=== PATIENT | male | born 1975 | race Hispanic/Latino ===

== ENCOUNTER 2020-07-28 22:42 | Emergency (ER) | payer SELFPAY ==
[2020-07-28 22:48] VITALS: BP 142/82; PULSE 90; RESP 16; TEMP 36.4; O2SAT 100
--- NOTE | 2020-07-28 23:12 | PC.NURSE ---
Pt unable to urinate at this time, refusing straight catheter. Urine cup at bedside.
[2020-07-28 23:13] VITALS: PULSE 91
[2020-07-28 23:27] LABS: Glucose Point of Care 344 mg/dl (65-105)
[2020-07-28 23:32] VITALS: BP 128/83; PULSE 92; RESP 19; O2SAT 100
[2020-07-28] MEDS: SODIUM CHLORIDE 0.9% IV 1,000 ML 999 ML IV CONT (23:40)
[2020-07-29] VITALS: BP 138/79; PULSE 89; RESP 20; O2SAT 100
--- NOTE | 2020-07-29 00:15 | PC.NURSE ---
Pt to attempt to provide urine sample at this time.
[2020-07-29 00:29] LABS: Alanine Aminotransferase 17 U/L (4-50); Albumin Level 4.5 g/dL (3.5-5.1); Alkaline Phosphatase 94 U/L (38-126); Anion Gap 15 mmol/L (8-16); Aspartate Amino Transferase 22 U/L (17-59); Bilirubin,Total 0.4 mg/dL (0.2-1.3); Blood Urea Nitrogen 20 mg/dL (9-20); Calcium 9.1 mg/dL (8.4-10.2); Carbon Dioxide 20 mmol/L (22-30); Chloride 97 mmol/L (98-107); Estimated CRCL calculation 74 ml/min; Estimated Glomerular Filt Rate > 60; Glucose 356 mg/dL (75-110); Magnesium 1.9 mg/dL (1.6-2.3); Phosphorus 3.8 mg/dL (2.5-4.5); Potassium 4.6 mmol/L (3.4-5.0); Sodium 132 mmol/L (137-145)
[2020-07-29 00:31] LABS: Add Urine Microscopic? YES; Appearance Urine Clear (Clear); Bilirubin Urine Negative (Negative); Blood Urine Negative (Negative); Color Urine Straw (Yellow); Glucose Urine UA 3+ mg/dL (Negative); Ketones Urine 2+ mg/dL (Negative); Leukocyte Esterase Ur Negative LEU/UL (Negative); Mucus Urine Rare /lpf; Nitrate Urine Negative (Negative); Protein Urine 1+ mg/dL (Negative); Specific Grav Ur 1.027 (1.001-1.035); Squamous Epithelial Cell Urine Rare /hpf (Few); Urobilinogen Urine Negative mg/dL (<2.0); WBC Urine 0-3 /hpf
[2020-07-29 00:33] LABS: Basophils Percent Auto 0.7 % (0.2-1.2); Eosinophils Absolute Auto 0.2 K/mm3 (0-0.3); Eosinophils Percent Auto 3.7 % (0-4.4); Hematocrit 39.8 % (42.0-52.0); Hemoglobin 13.4 g/dL (14.0-18.0); Immature Granulocyte Absolute 0.02 K/mm3 (0.00-0.031); Immature Granulocyte Percent A 0.4 % (0-0.5); Lymphocytes Absolute Auto 2.68 K/mm3 (0.9-3.2); Lymphocytes Percent Auto 50.2 % (18.3-44.2); Mean Corpuscular HGB Conc 33.7 g/dl (32-36); Mean Corpuscular Hemoglobin 30.9 pg (26-34); Mean Corpuscular Volume 91.9 fl (80-100); Mean Platelet Volume 11.1 fl (7.4-10.4); Monocytes Absolute Auto 0.4 K/mm3 (0.1-0.6); Monocytes Percent Auto 6.7 % (2.6-8.5); Neutrophils Percent Auto 38.3 % (45.5-73.1); Platelet Count Result 300 k/mm3 (150-375); Red Blood Count 4.33 M/mm3 (4.6-6.20); Red Cell Distribution Width 11.8 % (11.5-14.5); White Blood Count 5.3 K/mm3 (4.5-10.0)
[2020-07-29] MEDS: SODIUM CHLORIDE 0.9% IV 1,000 ML 999 ML IV CONT (00:53)
[2020-07-29] MEDS: INSULIN HUMAN REGULAR (*BKC) 100 UNITS/ML 8 UNITS SUB-Q (00:54)
[2020-07-29 00:59] LABS: Glucose Point of Care 291 mg/dl (65-105)
--- NOTE | 2020-07-29 01:07 | ED.GENADULT ---
HPI - General Adult General Chief complaint: Unspecified Stated complaint: diabetic and feeling tired Time Seen by Provider: 07/28/20 23:00 Source: patient and RN notes reviewed Mode of arrival: ambulatory Limitations: no limitations History of Present Illness HPI narrative: Patient is a 44-year-old male who presents with chief complaint of fatigue and neuropathy notes that he is out of his gabapentin which has resulted in discomfort in the extremities patient notes that he does not have a primary care buys his insulin from [employer] patient notes that he did not check his sugar today but it typically runs in the 200 range patient denies any recent illness or other complaints presents in no distress Related Data Allergies Allergy/AdvReac Type Severity Reaction Status Date / Time No Known Allergies Allergy Verified 07/28/20 22:52 Review of Systems Review of Systems: All systems reviewed & are unremarkable except as noted in HPI and below PMFSH Past Medical History Medical History (Updated 07/29/20 @ 01:11 by Reji Oliver PA-C) Diabetes mellitus Neuropathy Social History Social History (Updated 07/29/20 @ 01:08 by Reji Oliver PA-C) Smoking status: Never smoker Gender identity (if verbalized by the patient): Male Exam Narrative: Exam Narrative: GENERAL: Well-appearing, well-nourished, and in no acute distress. HEAD: Normocephalic, atraumatic. EYES: PERRLA and EOMI. ENT: Nares clear, no rhinorrhea or epistaxis. Mucous membranes moist. CHEST: Clear to auscultation. No respiratory distress. No wheezes rales or rhonchi HEART: Regular rate and rhythm. No murmur heard. Normal peripheral pulses. ABDOMEN: Soft, nontender, nondistended EXTREMITIES: Normal range of motion. No edema. SKIN: Warm, dry, no rash. NEURO: No focal deficits. Alert and oriented x3. PSYCH: Normal mood and affect. Course Course Emergency Course: Patient evaluated in the emergency department for fatigue found to have hyperglycemia was hydrated given insulin with marked improvement will be given resources for primary care follow-up was afebrile nontoxic-appearing no distress felt appropriate for outpatient reevaluation. ABCs and vital signs intact and stable. Patient agrees with this plan patient provided with reasons to return Vital Signs Vital signs: Vital Signs Temperature 97.6 F 07/28/20 22:48 Pulse Rate 90 07/28/20 22:48 Respiratory Rate 16 07/28/20 22:48 Blood Pressure 142/82 H 07/28/20 22:48 Pulse Oximetry 100 07/28/20 22:48 Temperature 97.6 F 07/28/20 22:48 Pulse Rate 91 07/28/20 23:13 Respiratory Rate 16 07/28/20 22:48 Blood Pressure 142/82 H 07/28/20 22:48 Pulse Oximetry 100 07/28/20 22:48 Medical Decision Making MDM Narrative Medical decision making narrative: Patient with hyperglycemia dehydration and neuropathy addressed in the emergency department will be discharged home with outpatient follow-up. Patient had marked improvement with hydration blood sugar down to 200 patient will follow with primary care tomorrow feels comfortable going home will watch his sugars closely afebrile nontoxic-appearing ABCs and vital signs intact and stable Vital Signs Vital Signs: Vital Signs Temperature 97.6 F 07/28/20 22:48 Pulse Rate 90 07/28/20 22:48 Respiratory Rate 16 07/28/20 22:48 Blood Pressure 142/82 H 07/28/20 22:48 Pulse Oximetry 100 07/28/20 22:48 Temperature 97.6 F 07/28/20 22:48 Pulse Rate 91 07/28/20 23:13 Respiratory Rate 16 07/28/20 22:48 Blood Pressure 142/82 H 07/28/20 22:48 Pulse Oximetry 100 07/28/20 22:48 Lab Data Result diagrams: 07/28/20 23:46 07/28/20 23:46 Labs: Lab Results 07/28/20 07/28/20 07/28/20 Range/Units 23:11 23:46 23:46 WBC 5.3 (4.5-10.0) K/mm3 RBC 4.33 L (4.6-6.20) M/mm3 Hgb 13.4 L (14.0-18.0) g/dL Hct 39.8 L (42.0-52.0) % MCV 91.9 (80-100) fl MCH 30.9 (2
[2020-07-29 01:44] LABS: Beta-Hydroxybutyrate/Acetoacetate 5.65 mmol/L (0.02-0.27)
[2020-07-29 01:57] LABS: Glucose Point of Care 210 mg/dl (65-105)
[2020-07-29 02:20] VITALS: BP 132/77; PULSE 87; RESP 19; O2SAT 97
== END 2020-07-29 02:20 | disposition home or self-care (01) ==
PROVIDERS: Emergency Medicine Emergency Medical Services; Emergency Provider Emergency Medicine
DX: E11.65 Type 2 diabetes mellitus with hyperglycemia (principal); E11.40 Type 2 diabetes mellitus with diabetic neuropathy, unspecified; Z79.4 Long term (current) use of insulin
CPT/HCPCS: 36415; 80053; 81001; 82010; 82948; 83735; 84100; 85025; 96360; 96361; 99283; J1815; J7030